=== PATIENT | male | born 1970 | race Caucasian/White ===

== ENCOUNTER 2017-07-08 20:19 | Emergency (ER) | payer OTHER | END 2017-07-08 21:30 | disposition left against medical advice (07) | LOC: MADERS 20:19 | DX: Z53.21 Procedure and treatment not carried out due to patient leaving prior to being seen by health care provider (principal) ==

== ENCOUNTER 2018-10-29 18:06 | Emergency (ER) | payer OTHER | END 2018-10-29 19:27 | disposition home or self-care (01) | LOC: MADERS 18:06 | DX: B37.42 Candidal balanitis (principal); E11.9 Type 2 diabetes mellitus without complications; I10 Essential (primary) hypertension; F17.210 Nicotine dependence, cigarettes, uncomplicated; Z79.899 Other long term (current) drug therapy | CPT/HCPCS: 36416; 87255; 99283 ==

== ENCOUNTER 2019-07-08 07:35 | Emergency (ER) | payer OTHER ==
--- NOTE | 2019-07-08 08:16 | RAD ---
XR Hand Rt 3 View STANDARD HISTORY: Fall with hand injury COMPARISON: None. FINDINGS: There are mild arthritic changes of the hand and wrist. There are no signs of fracture or d islocation. IMPRESSION: No evidence of fracture.
== END 2019-07-08 08:28 | disposition home or self-care (01) ==
LOC: MADERS 07:35
DX: S60.221A Contusion of right hand, initial encounter (principal); E11.9 Type 2 diabetes mellitus without complications; I10 Essential (primary) hypertension; F17.210 Nicotine dependence, cigarettes, uncomplicated; Z79.899 Other long term (current) drug therapy; W17.89XA Other fall from one level to another, initial encounter

== ENCOUNTER → 2019-09-08 | Emergency (ER) | payer BC, OTHER ==
[~2019-09-08] MED LIST: Acetaminophen 500 MG TAB ONE; Ibuprofen 800 MG TAB ONE; Oseltamivir 75 MG CAP ONE
== END ==
LOC: MADERS 20:07
DX: J11.1 Influenza due to unidentified influenza virus with other respiratory manifestations (principal); E11.9 Type 2 diabetes mellitus without complications; I10 Essential (primary) hypertension; F17.210 Nicotine dependence, cigarettes, uncomplicated; Z79.899 Other long term (current) drug therapy
CPT/HCPCS: 99283

== ENCOUNTER 2021-01-13 14:10 | Emergency (ER) | payer BC ==
[2021-01-13] MEDS ORDERED: predniSONE 20 MG TAB ONE (14:46)
== END 2021-01-13 14:52 | disposition home or self-care (01) ==
LOC: MADERS 14:10
DX: J06.9 Acute upper respiratory infection, unspecified (principal); I10 Essential (primary) hypertension; E11.9 Type 2 diabetes mellitus without complications; K21.9 Gastro-esophageal reflux disease without esophagitis; F17.210 Nicotine dependence, cigarettes, uncomplicated; Z79.84 Long term (current) use of oral hypoglycemic drugs; Z79.899 Other long term (current) drug therapy
CPT/HCPCS: 99283; J7512

== ENCOUNTER 2021-06-25 14:42 | Emergency (ER) | payer BC, OTHER ==
[2021-06-25] MEDS ORDERED: Lidocaine 1% 20 ML MDV ONE (15:56)
[2021-06-25] MEDS ORDERED: cefTRIAXone\\ROCEPHIN 1 GM VIAL ONE (15:56)
[2021-06-26 07:59] LABS: SARS-CoV-2 PCR by NAA Not Detected (NotDetected)
== END 2021-06-25 16:20 | disposition home or self-care (01) ==
LOC: MADERS 14:42
DX: J44.1 Chronic obstructive pulmonary disease with (acute) exacerbation (principal); Z20.822 Contact with and (suspected) exposure to COVID-19; F17.210 Nicotine dependence, cigarettes, uncomplicated; I10 Essential (primary) hypertension; E11.9 Type 2 diabetes mellitus without complications; K21.9 Gastro-esophageal reflux disease without esophagitis; Z79.84 Long term (current) use of oral hypoglycemic drugs; Z79.899 Other long term (current) drug therapy; Z71.6 Tobacco abuse counseling
CPT/HCPCS: 71045; 96372; 99406; J0696; J1040; U0003; U0005

== ENCOUNTER 2022-07-14 12:25 | Emergency (ER) | payer BC, OTHER ==
[2022-07-14] MEDS ORDERED: Azithromycin 250 MG TAB ONE ×2 (13:04→13:11)
== END 2022-07-14 13:45 | disposition home or self-care (01) ==
LOC: MADERS 12:25
DX: J45.901 Unspecified asthma with (acute) exacerbation (principal); I10 Essential (primary) hypertension; E11.9 Type 2 diabetes mellitus without complications; K21.9 Gastro-esophageal reflux disease without esophagitis; F17.210 Nicotine dependence, cigarettes, uncomplicated; Z79.01 Long term (current) use of anticoagulants; Z79.899 Other long term (current) drug therapy
CPT/HCPCS: 87070; 87077; 87205; 96372; J1040; J7620

== ENCOUNTER 2024-02-27 17:12 | Emergency (ER) | payer BC | END 2024-02-27 17:39 | disposition home or self-care (01) | LOC: MADERS 17:12 | DX: L02.31 Cutaneous abscess of buttock (principal); E11.9 Type 2 diabetes mellitus without complications; I10 Essential (primary) hypertension; F17.210 Nicotine dependence, cigarettes, uncomplicated; Z79.899 Other long term (current) drug therapy | CPT/HCPCS: 99282 ==

== ENCOUNTER 2024-02-29 18:57 | Emergency (ER) | payer BC ==
[~2024-02-29 18:57] MED LIST changes: -Acetaminophen 500 MG TAB ONE; -Ibuprofen 800 MG TAB ONE; +Iopamidol 370 76% 100 ML VIAL ONE; -Oseltamivir 75 MG CAP ONE
[2024-02-29 19:44] LABS: #Basophils 0.1 thou/uL (0.0-0.2); #Eosinphils 0.2 thou/uL (0.0-0.7); #Lymphocytes 3.8 thou/uL (1.20-3.40); #Monocytes 0.8 thou/uL (0.11-0.59); #Neutrophils 8.3 thou/uL (1.40-6.50); %Eosinophils 1.5 % (0.0-10.0); %Lymphocytes 28.4 % (21.0-51.0); %Monocytes 6.4 % (0.0-10.0); %Neutrophils 62.7 % (42.0-75.0); Hematocrit 48.5 % (42.0-52.0); Hemoglobin 15.5 g/dL (14.0-18.0); Mean Corpuscular HGB CONC 31.9 g/dL (32.0-36.0); Mean Corpuscular Hemoglobin 30.5 pg (27.0-31.0); Mean Corpuscular Volume 95.8 fl (78.0-98.0); Mean Platelet Volume 6.2 fL (7.4-10.4); Platelet Count 211 10x3/uL (130-400); RBC Distribution Width 11.3 % (11.5-14.5); Red Blood Cell (RBC) Count 5.06 mill/uL (4.70-6.10); White Blood Cell (WBC) Count 13.3 10x3/uL (4.8-10.8)
[2024-02-29 20:00] LABS: ALT (SGPT) 19 U/L (8-55); AST (SGOT) 14 U/L (5-34); Albumin 4.3 g/dL (3.5-5.0); Alkaline Phosphatase 58 U/L (40-110); Anion Gap 17 mmol/L (10-20); BUN (Urea Nitrogen) 10 mg/dL (8.4-25.7); Bilirubin, Total 0.6 mg/dL (0.2-1.2); Calc. Creatinine Clearance 0 mL/min (70-130); Calcium 9.1 mg/dL (7.8-10.44); Carbon Dioxide 21 mmol/L (22-29); Chloride 103 mmol/L (98-107); Estimated GFR 102; Glucose 178 mg/dL (70-105); Potassium 3.6 mmol/L (3.5-5.1); Protein, Total 7.3 g/dL (6.0-8.3); Sodium 137 mmol/L (136-145)
[2024-02-29] MEDS ORDERED: Ketorolac Tromethamine 30 MG (1 mL) VIAL ONE (20:32)
[2024-02-29] MEDS ORDERED: Sodium Chloride 0.9% 250 ML 250 ML ONE (20:32)
[2024-02-29] MEDS ORDERED: Vancomycin 1 GM VIAL ONE (20:32)
== END 2024-02-29 21:20 | disposition home or self-care (01) ==
LOC: MADERS 18:57
DX: L02.31 Cutaneous abscess of buttock (principal); E11.9 Type 2 diabetes mellitus without complications; I10 Essential (primary) hypertension; F17.210 Nicotine dependence, cigarettes, uncomplicated; Z79.899 Other long term (current) drug therapy
CPT/HCPCS: 72193; 80053; 85025; 96365; 96375; J1885; J3370; J7050; Q9967

== ENCOUNTER 2024-09-18 04:03 | Emergency (ER) | payer BC ==
[2024-09-18] MEDS ORDERED: predniSONE 10 MG TAB ONE (05:05)
[2024-09-18] MEDS ORDERED: predniSONE 20 MG TAB ONE (05:06)
== END 2024-09-18 05:15 | disposition home or self-care (01) ==
LOC: MADERS 04:03
DX: J06.9 Acute upper respiratory infection, unspecified (principal); E11.9 Type 2 diabetes mellitus without complications; I10 Essential (primary) hypertension; F17.210 Nicotine dependence, cigarettes, uncomplicated; Z79.899 Other long term (current) drug therapy
CPT/HCPCS: 87428; 99283; J7512

== ENCOUNTER 2025-09-15 09:10 | Emergency (ER) | payer BC, OTHER ==
[2025-09-15] MEDS ORDERED: Dexamethasone 10 MG/ML VIAL ONE (09:46)
== END 2025-09-15 09:52 | disposition home or self-care (01) ==
LOC: MADERS 09:10
DX: J06.9 Acute upper respiratory infection, unspecified (principal); J20.9 Acute bronchitis, unspecified; E11.9 Type 2 diabetes mellitus without complications; I10 Essential (primary) hypertension; K21.9 Gastro-esophageal reflux disease without esophagitis; F17.210 Nicotine dependence, cigarettes, uncomplicated; Z79.899 Other long term (current) drug therapy; Z79.84 Long term (current) use of oral hypoglycemic drugs
CPT/HCPCS: 96372; 99283; J1100